=== PATIENT | male | born 1970 | race Caucasian/White ===

== ENCOUNTER 2016-11-08 14:38 | Emergency (ER) | payer MEDICAID ==
--- NOTE | 2016-11-08 14:40 | EDM.PDOC ---
ED HPI GENERAL MEDICAL PROBLEM - General Chief Complaint: Allergic Reaction Stated Complaint: [id number] BEE STING LIP Time Seen by Provider: 11/08/16 14:40 Source of Information: Reports: Patient, RN, RN Notes Reviewed History Limitations: Reports: No Limitations - History of Present Illness INITIAL COMMENTS - FREE TEXT/NARRATIVE: Arrives to ER by POV with c/o that he was just stung on the upper lip by a bee ( yellow jacket). Pt felt a brief tightening in his throat, but that feels better now. He c/o sudden onset of nasal congestion ("plugged nose") shortly after being stung as well. Denies any itching of the skin, hives, rash, cough, wheezing, or difficulty breathing. Onset: Today Duration: Constant Location: Reports: Face Quality: Reports: Burning (stinging) Severity: Moderate Improves with: Reports: None Worsens with: Reports: None Associated Symptoms: Reports: No Other Symptoms Upper Lip Pain Score (Numeric/FACES): 1 - Related Data Allergies Allergy/AdvReac Type Severity Reaction Status Date / Time Penicillins Allergy Hives Verified 11/08/16 14:42 Home Meds: Home Meds . [No Known Home Meds] 11/08/16 [History] Past Medical History - Past Health History Medical/Surgical History: Denies Medical/Surgical History Social & Family History - Family History Family Medical History: Noncontributory - Living Situation & Occupation Living situation: Reports: with Family Occupation: Employed ED ROS ALLERGIC REACTION - Review of Systems Review Of Systems: ROS reveals no pertinent complaints other than HPI. ED EXAM GENERAL NO PERIP PULSE - Physical Exam Exam: See Below Exam Limited By: No Limitations General Appearance: Alert, WD/WN, No Apparent Distress, Anxious Eye Exam: Bilateral Eye: Normal Inspection Ears: Normal External Exam, Hearing Grossly Normal Nose: No Blood, Nasal Drainage (clear, thick, with mild congestion and inflammed /swollen nasal mucosa) Throat/Mouth: Normal Oropharynx, Normal Voice, No Airway Compromise Head: Atraumatic, Normocephalic Neck: Normal Inspection, Supple, Non-Tender, Full Range of Motion Respiratory/Chest: No Respiratory Distress, Lungs Clear, Normal Breath Sounds, No Accessory Muscle Use, Chest Non-Tender Cardiovascular: Regular Rate, Rhythm Extremities: Normal Inspection Neurological: Alert, Oriented, CN II-XII Intact, Normal Cognition, Normal Gait, No Motor/Sensory Deficits Skin Exam: Warm, Dry, Intact, Normal Color Course - Vital Signs Last Recorded V/S: Last Vital Signs Temp 36.5 C 11/08/16 14:43 Pulse 58 L 11/08/16 14:43 Resp 18 11/08/16 14:43 BP 126/84 11/08/16 14:43 Pulse Ox 100 11/08/16 14:43 - Orders/Labs/Meds Meds: Medications Discontinued Medications Generic Name Dose Route Start Last Admin Trade Name Diego PRN Reason Stop Dose Admin Epinephrine HCl 0.5 mg 11/08/16 14:59 Adrenalin 1:1000 IM 11/08/16 15:00 ONETIME ONE Loratadine 10 mg 11/08/16 14:58 Claritin PO 11/08/16 14:59 ONETIME ONE Prednisone 60 mg 11/08/16 14:59 Prednisone PO 11/08/16 15:00 ONETIME ONE Departure - Departure Time of Disposition: 15:40 Disposition: Home, Self-Care 01 Condition: Good Clinical Impression: Wasp sting Qualifiers: Encounter type: initial encounter Injury intent: accidental or unintentional Qualified Code(s): T63.461A - Toxic effect of venom of wasps, accidental ( unintentional), initial encounter Local reaction to insect sting Qualifiers: Encounter type: initial encounter Injury intent: accidental or unintentional Qualified Code(s): T63.481A - Toxic effect of venom of other arthropod, accidental (unintentional), initial encounter - Discharge Information Instructions: Bee, Wasp, or Hornet Sting Forms: ED Department Discharge Additional Instructions: Rx: Prednisone 20mg Apply ice to area of sting. Use over the counter Benadryl 25mg: Take 1 or 2 tablets by mouth every 6 hours as needed until the swelling and pain or itching from the sting resolve. Follow up in clinic if not improving in 2 to 3 days. Return to ER if worse at any time.
[2016-11-08 14:45] VITALS: BP 126/84
[2016-11-08] MEDS ORDERED: Loratadine 10 MG Tab PO ONE (14:58)
[2016-11-08] MEDS ORDERED: EPINEPHrine 1 MG/ML SDV IM ONE (14:59)
[2016-11-08] MEDS ORDERED: predniSONE 20 MG Tab PO ONE (14:59)
== END 2016-11-08 15:35 | disposition home or self-care (01) ==
LOC: DL.ED 14:38
DX: T63.461A Toxic effect of venom of wasps, accidental (unintentional), initial encounter (principal); Z88.0 Allergy status to penicillin
CPT/HCPCS: 96372; 99282; A9270; J0171

== ENCOUNTER 2017-09-18 18:48 | Emergency (ER) | payer MEDICAID ==
[2017-09-18 20:09] VITALS: BP 133/70
[2017-09-18] MEDS ORDERED: Acetaminophen 325 MG Tab PO ONE (20:29)
[2017-09-18] MEDS ORDERED: Sodium Chloride 0.9% 1,000 ML IV ONE (20:29)
[2017-09-18 20:35] LABS: CHLORIDE,CL 98 mmol/L (101-111); SODIUM,NA 134 mmol/L (135-145)
[2017-09-18] MEDS ORDERED: Ketorolac 30 MG/ML SDV IVPUSH ONE (21:34)
[2017-09-18] MEDS ORDERED: Doxycycline 100 MG Cap PO ONE (21:35)
--- NOTE | 2017-09-18 22:15 | EDM.PDOC ---
ED HPI GENERAL MEDICAL PROBLEM - General Chief Complaint: General Stated Complaint: MALAYS Time Seen by Provider: 09/18/17 19:45 Source of Information: Reports: Patient History Limitations: Reports: No Limitations - History of Present Illness INITIAL COMMENTS - FREE TEXT/NARRATIVE: increasing back pain, general aches and weakness since , thought over worked moving mud but last night coughed during night and had sudden frontal headache, since pain when coughs, minimal at rest. had upper back pain at start of symptoms but now tends to be in more lower back, helt hot and chilled at same time, no nausea or vomiting. Rare cough, admits recent resumption of cigars. States is out side most of time, exposure to both ticks and mosquitos. Has pulled multiple ticks off. No noted rashes. Generalized Pain Score (Numeric/FACES): 7 - Related Data Allergies Allergy/AdvReac Type Severity Reaction Status Date / Time Penicillins Allergy Hives Verified 09/19/17 10:48 Home Meds: Home Meds . [No Known Home Meds] 11/08/16 [History] Past Medical History - Past Health History Medical/Surgical History: Denies Medical/Surgical History HEENT History: Reports: None Cardiovascular History: Reports: None Respiratory History: Reports: None Gastrointestinal History: Reports: None Genitourinary History: Reports: None Musculoskeletal History: Reports: Fracture Neurological History: Reports: None Psychiatric History: Reports: None Endocrine/Metabolic History: Reports: None Hematologic History: Reports: None Immunologic History: Reports: None Oncologic (Cancer) History: Reports: None Dermatologic History: Reports: Eczema - Infectious Disease History Infectious Disease History: Reports: Chicken Pox - Past Surgical History HEENT Surgical History: Reports: None Cardiovascular Surgical History: Reports: None Respiratory Surgical History: Reports: None GI Surgical History: Reports: None Male Surgical History: Reports: None Endocrine Surgical History: Reports: None Neurological Surgical History: Reports: None Musculoskeletal Surgical History: Reports: Shoulder Surgery Dermatological Surgical History: Reports: None Social & Family History - Family History Family Medical History: Noncontributory - Tobacco Use Smoking Status *Q: Former Smoker Used Tobacco, but Quit: Yes Month/Year Tobacco Last Used: 09/18/17 - Caffeine Use Caffeine Use: Reports: Coffee - Recreational Drug Use Recreational Drug Use: No - Living Situation & Occupation Living situation: Reports: with Family Occupation: Employed ED ROS GENERAL - Review of Systems Review Of Systems: See Below Constitutional: Reports: Fever, Malaise, Decreased Appetite. Denies: Chills, Weakness HEENT: Reports: No Symptoms Respiratory: Reports: No Symptoms Cardiovascular: Reports: No Symptoms GI/Abdominal: Reports: Decreased Appetite, Nausea. Denies: Vomiting Musculoskeletal: Reports: Other (generalized body aches) Skin: Denies: Rash, Erythema, Wound Neurological: Reports: Headache. Denies: Numbness, Trouble Speaking, Difficulty Walking, Weakness ED EXAM, GENERAL - Physical Exam Exam: See Below Exam Limited By: No Limitations General Appearance: Alert, Mild Distress Eye Exam: Bilateral Eye: EOMI, PERRL Ears: Normal External Exam, Normal TMs Nose: Normal Inspection, Normal Mucosa, No Blood Throat/Mouth: Normal Inspection, Normal Lips, Normal Teeth, Normal Gums, Normal Oropharynx, Normal Voice, No Airway Compromise Head: Atraumatic, Normocephalic Neck: Normal Inspection, Supple, Non-Tender, Full Range of Motion, Other (no nuccal rigidity) Respiratory/Chest: No Respiratory Distress, Lungs Clear Cardiovascular: Normal Peripheral Pulses, Regular Rate, Rhythm GI/Abdominal: Normal Bowel Sounds, Soft, Non-Tender Back Exam: Normal Inspection, Full Range of Motion Neurological: Alert, Oriented, Normal Cognition, Normal Gait, Normal Reflexes, No Motor/Sensory Deficits Psychiatric: Flat Affect Skin Exam: Warm, Dry, Intact, Normal Color Course - Vital Signs Last Recorded V/S: Last Vital Signs Temp 99.2 F 09/18/17 22:19 Pulse 80 09/18/17 20:06 Resp 16 09/18/17 20:06 BP 133/70 09/18/17 20:06 Pulse Ox 99 09/18/17 20:06 - Orders/Labs/Meds Labs: Laboratory Tests 09/18/17 09/18/17 09/18/17 Range/Units 18:50 20:06 20:06 WBC 5.5 (5.0-10.0) 10^3/uL RBC 5.00 (4.6-6.2) 10^6/uL Hgb 15.9 (14.0-18.0) g/dL Hct 45.9 (40.0-54.0) % MCV 91.8 (80-100) fL MCH 31.8 (27.0-34.0) pg MCHC 34.6 (33.0-35.0) g/dL Plt Count 155 (150-450) 10^3/uL Neut % (Auto) 82.5 H (42.2-75.2) % Lymph % (Auto) 10.3 L (20.5-50.1) % [place] % (Auto) 6.5 (2-8) % Eos % (Auto) 0.0 L (1.0-3.0) % Baso % (Auto) 0.7 (0.0-1.0) % Sodium 134 L (135-145) mmol/L Potassium 3.7 (3.6-5.0) mmol/L Chloride 98 L (101-111) mmol/L Carbon Dioxide 27.0 (21.0-31.0) mmol/L Anion Gap 12.7 BUN 8 (7-18) mg/dL Creatinine 0.9 (0.6-1.3) mg/dL Est Cr Clr Drug Dosing 117.14 mL/min Estimated GFR (MDRD) > 60 BUN/Creatinine Ratio 8.88 Glucose 97 (74-105) mg/dL Lactic Acid (0.5-2.2) mmol/L Calcium 8.7 (8.4-10.2) mg/dl Total Bilirubin 0.7 (0.2-1.0) mg/dL AST 29 (10-42) IU/L ALT 22 (10-60) IU/L Alkaline Phosphatase 80 (42-121) IU/L Total Protein 7.9 (6.7-8.2) g/dl Albumin 4.0 (3.2-5.5) g/dl Globulin 3.9 Albumin/Globulin Ratio 1.03 Urine Color Yellow (YELLOW) Urine Appearance Clear (CLEAR) Urine pH 5.5 (5.0-9.0) Ur Specific [place] 1.025 (1.005-1.030) Urine Protein 30 H (NEGATIVE) Urine Glucose (UA) Negative (NEGATIVE) Urine Ketones Negative (NEGATIVE) Urine Occult Blood Moderate H (NEGATIVE) Urine Nitrite Negative (NEGATIVE) Urine Bilirubin Negative (NEGATIVE) Urine Urobilinogen 0.2 (0.2-1.0) mg/dL Ur Leukocyte Esterase Negative (NEGATIVE) Urine RBC 5-10 H /HPF Urine WBC 0-5 (0-5/HPF) /HPF Ur Epithelial Cells Occasional /HPF Urine Bacteria Moderate H (0-FEW/HPF) /HPF Urine Mucus Few H /LPF 09/18/17 Range/Units 20:06 WBC (5.0-10.0) 10^3/uL RBC (4.6-6.2) 10^6/uL Hgb (14.0-18.0) g/dL Hct (40.0-54.0) % MCV (80-100) fL MCH (27.0-34.0) pg MCHC (33.0-35.0) g/dL Plt Count (150-450) 10^3/uL Neut % (Auto) (42.2-75.2) % Lymph % (Auto) (20.5-50.1) % [place] % (Auto) (2-8) % Eos % (Auto) (1.0-3.0) % Baso % (Auto) (0.0-1.0) % Sodium (135-145) mmol/L Potassium (3.6-5.0) mmol/L Chloride (101-111) mmol/L Carbon Dioxide (21.0-31.0) mmol/L Anion Gap BUN (7-18) mg/dL Creatinine (0.6-1.3) mg/dL Est Cr Clr Drug Dosing mL/min Estimated GFR (MDRD) BUN/Creatinine Ratio Glucose (74-105) mg/dL Lactic Acid 1.0 (0.5-2.2) mmol/L Calcium (8.4-10.2) mg/dl Total Bilirubin (0.2-1.0) mg/dL AST (10-42) IU/L ALT (10-60) IU/L Alkaline Phosphatase (42-121) IU/L Total Protein (6.7-8.2) g/dl Albumin (3.2-5.5) g/dl Globulin Albumin/Globulin Ratio Urine Color (YELLOW) Urine Appearance (CLEAR) Urine pH (5.0-9.0) Ur Specific [place] (1.005-1.030) Urine Protein (NEGATIVE) Urine Glucose (UA) (NEGATIVE) Urine Ketones (NEGATIVE) Urine Occult Blood (NEGATIVE) Urine Nitrite (NEGATIVE) Urine Bilirubin (NEGATIVE) Urine Urobilinogen (0.2-1.0) mg/dL Ur Leukocyte Esterase (NEGATIVE) Urine RBC /HPF Urine WBC (0-5/HPF) /HPF Ur Epithelial Cells /HPF Urine Bacteria (0-FEW/HPF) /HPF Urine Mucus /LPF Meds: Medications Discontinued Medications Generic Name Dose Route Start Last Admin Trade Name Diego PRN Reason Stop Dose Admin Acetaminophen 650 mg 09/18/17 20:29 09/18/17 20:37 Tylenol PO 09/18/17 20:30 650 mg NOW ONE Administration Doxycycline Hyclate 100 mg 09/18/17 21:35 09/18/17 21:43 Vibramycin PO 09/18/17 21:36 100 mg ONETIME ONE Administration Sodium Chloride 1,000 mls @ 999 mls/hr 09/18/17 20:29 09/18/17 20:35 Normal Saline IV 09/18/17 21:29 999 mls/hr .BOLUS ONE Administration Ketorolac Tromethamine 30 mg 09/18/17 21:34 09/18/17 21:43 Toradol IVPUSH 09/18/17 21:35 30 mg ONETIME ONE Administration - Radiology Interpretation Free Text/Narrative:: Head CT negative Departure - Departure Time of Disposition: 22:10 Disposition: Home, Self-Care 01 Condition: Good Clinical Impression: Viral syndrome, Mild dehydration, Myalgia Hematuria Qualifiers: Hematuria type: unspecified type Qualified Code(s): R31.9 - Hematuria, unspecified Tick bite of periumbilical region Qualifiers: Encounter type: initial encounter Qualified Code(s): S30.861A - Insect bite ( nonvenomous) of abdominal wall, initial encounter - Discharge Information Instructions: Tick Bite Information, Adult, [id number], West Nile Virus Referrals: PCP,None [Primary Care Provider] - Forms: ED Department Discharge Additional Instructions: increase fluids rest, light activity follow up if worsening symptoms, with weakness, development of rash, constant headache, neck pain with movement, confusion doxycycline 100mg twice daily for one week
== END 2017-09-18 22:19 | disposition home or self-care (01) ==
LOC: DL.ED 18:48
DX: S30.861A Insect bite (nonvenomous) of abdominal wall, initial encounter (principal); E86.0 Dehydration; R31.9 Hematuria, unspecified; B34.9 Viral infection, unspecified; M79.1 Myalgia; Z88.0 Allergy status to penicillin; Z87.891 Personal history of nicotine dependence; W57.XXXA Bitten or stung by nonvenomous insect and other nonvenomous arthropods, initial encounter
CPT/HCPCS: 36415; 70450; 71045; 74176; 80053; 81001; 83605; 85025; 86618; 86788; 87040; 87081; 87430; 87804; 96361; 96374; 99284; A9270; J1885; J7030; 86617

== ENCOUNTER 2018-08-16 13:09 | Emergency (ER) | payer MEDICAID, OTHER ==
[2018-08-16 13:18] VITALS: BP 137/85; PULSE 66
--- NOTE | 2018-08-16 13:44 | EDM.PDOC ---
ED HPI GENERAL MEDICAL PROBLEM - General Chief Complaint: Respiratory Problem Stated Complaint: passing out,hard to breathe Time Seen by Provider: 08/16/18 13:44 Source of Information: Reports: Patient, RN, RN Notes Reviewed History Limitations: Reports: No Limitations - History of Present Illness INITIAL COMMENTS - FREE TEXT/NARRATIVE: Pt to ER with c/o dizziness, near syncope episode, nausea, and dry heaves. Patient [place] and had diarrhea, which he states had bright red blood in it. He states he has had this several times in the past and has been told that he has internal hemorrhoids. Pt states he feels he is having a reaction of two medications he took this morning. He states he took indomethacin and modanfinil, which he rarely takes together. He states that within 1 hour of taking the medications he felt "not right". He denies recent illness, fever, chills. States he had nausea with dry heaves today , felt dizzy, and felt as if he were going to pass out while he was driving. Pt also admits to SOB "in episodes". Patient states he used to smoke, and has cut back, but still smokes occasionally. Denies any pain at this time. He states he feels sleepy. Onset: Today, Sudden Duration: Intermittent - Related Data Allergies Allergy/AdvReac Type Severity Reaction Status Date / Time Penicillins Allergy Hives Verified 08/16/18 13:13 Home Meds: Home Meds Indomethacin 50 mg PO PRN 08/16/18 [History] Past Medical History - Past Health History Medical/Surgical History: Denies Medical/Surgical History HEENT History: Reports: None Cardiovascular History: Reports: None Respiratory History: Reports: None Gastrointestinal History: Reports: None Genitourinary History: Reports: None Musculoskeletal History: Reports: Fracture Neurological History: Reports: None Psychiatric History: Reports: None Endocrine/Metabolic History: Reports: None Hematologic History: Reports: None Immunologic History: Reports: None Oncologic (Cancer) History: Reports: None Dermatologic History: Reports: Eczema - Infectious Disease History Infectious Disease History: Reports: Chicken Pox - Past Surgical History Head Surgeries/Procedures: Reports: None HEENT Surgical History: Reports: None Cardiovascular Surgical History: Reports: None Respiratory Surgical History: Reports: None GI Surgical History: Reports: None Male Surgical History: Reports: None Endocrine Surgical History: Reports: None Neurological Surgical History: Reports: None Musculoskeletal Surgical History: Reports: Shoulder Surgery Dermatological Surgical History: Reports: None Social & Family History - Family History Family Medical History: Noncontributory - Tobacco Use Smoking Status *Q: Current Every Day Smoker Years of Tobacco use: 28 Packs/Tins Daily: 1 - Caffeine Use Caffeine Use: Reports: Coffee, Energy Drinks, Soda - Alcohol Use Days Per Week of Alcohol Use: 3 Number of Drinks Per Day: 10 Total Drinks Per Week: 30 - Recreational Drug Use Recreational Drug Use: No - Living Situation & Occupation Living situation: Reports: with Family Occupation: Employed ED ROS GENERAL - Review of Systems Review Of Systems: ROS reveals no pertinent complaints other than HPI. ED EXAM, GENERAL - Physical Exam Exam: See Below Exam Limited By: No Limitations General Appearance: Alert, WD/WN, Anxious, Mild Distress Eye Exam: Bilateral Eye: EOMI, Normal Inspection Ears: Normal External Exam, Hearing Grossly Normal Nose: Normal Inspection Throat/Mouth: Normal Inspection, Normal Voice, No Airway Compromise Head: Atraumatic, Normocephalic Neck: Normal Inspection, Supple, Non-Tender, Full Range of Motion Respiratory/Chest: No Respiratory Distress, No Accessory Muscle Use, Chest Non- Tender, Decreased Breath Sounds Cardiovascular: Normal Peripheral Pulses, Regular Rate, Rhythm, No Edema, No Gallop, No JVD, No Murmur, No Rub Peripheral Pulses: 2+: Radial (L), Radial (R) GI/Abdominal: Normal Bowel Sounds, Soft, Non-Tender (Male) Exam: Deferred Rectal (Males) Exam: Deferred Back Exam: Normal Inspection, Full Range of Motion Extremities: Normal Inspection, Normal Range of Motion, Non-Tender, No Pedal Edema, Normal Capillary Refill Neurological: Alert, Oriented, CN II-XII Intact, Normal Cognition, Normal Gait, Normal Reflexes, No Motor/Sensory Deficits Psychiatric: Anxious Skin Exam: Warm, Dry, Intact, Normal Color, No Rash Lymphatic: No Adenopathy Course - Vital Signs Last Recorded V/S: Last Vital Signs Temp 97.6 F 08/16/18 13:16 Pulse 66 08/16/18 13:16 Resp 16 08/16/18 13:16 BP 137/85 08/16/18 13:16 Pulse Ox 100 08/16/18 13:16 - Orders/Labs/Meds Orders: Active Orders 24 hr Category Date Time Status EKG Documentation Completion [RC] STAT Care 08/16/18 13:59 Active Peripheral IV Care [RC] . DIRECTED Care 08/16/18 14:03 Active Peripheral IV Insertion Adult [OM.PC] Stat Oth 08/16/18 13:58 Ordered Labs: Laboratory Tests 08/16/18 08/16/18 08/16/18 Range/Units 14:16 14:16 14:16 WBC 6.0 (5.0-10.0) 10^3/uL RBC 4.71 (4.6-6.2) 10^6/uL Hgb 14.8 (14.0-18.0) g/dL Hct 42.0 (40.0-54.0) % MCV 89.2 (80-100) fL MCH 31.4 (27.0-34.0) pg MCHC 35.2 H (33.0-35.0) g/dL Plt Count 304 D (150-450) 10^3/uL Neut % (Auto) 64.4 (42.2-75.2) % Lymph % (Auto) 27.4 (20.5-50.1) % [place] % (Auto) 7.1 (2-8) % Eos % (Auto) 0.8 L (1.0-3.0) % Baso % (Auto) 0.3 (0.0-1.0) % PT 9.4 (9.0-12.0) SEC INR 0.9 (0.9-1.2) D-Dimer, Quantitative (0-400) ng/mL Sodium 135 (135-145) mmol/L Potassium 3.3 L (3.6-5.0) mmol/L Chloride 101 (101-111) mmol/L Carbon Dioxide 25.0 (21.0-31.0) mmol/L Anion Gap 12.3 BUN 21 H (7-18) mg/dL Creatinine 1.0 (0.6-1.3) mg/dL Est Cr Clr Drug Dosing 104.31 mL/min Estimated GFR (MDRD) > 60 BUN/Creatinine Ratio 21.00 Glucose 119 H (74-105) mg/dL Calcium 9.1 (8.4-10.2) mg/dl Total Bilirubin 0.6 (0.2-1.0) mg/dL AST 26 (10-42) IU/L ALT 20 (10-60) IU/L Alkaline Phosphatase 70 (42-121) IU/L Troponin I < 0.02 (0.00-0.02) ng/ml B-Natriuretic Peptide < 5 (0-100) pg/ml Total Protein 8.0 (6.7-8.2) g/dl Albumin 4.2 (3.2-5.5) g/dl Globulin 3.8 Albumin/Globulin Ratio 1.11 Urine Color (YELLOW) Urine Appearance (CLEAR) Urine pH (5.0-9.0) Ur Specific [place] (1.005-1.030) Urine Protein (NEGATIVE) Urine Glucose (UA) (NEGATIVE) Urine Ketones (NEGATIVE) Urine Occult Blood (NEGATIVE) Urine Nitrite (NEGATIVE) Urine Bilirubin (NEGATIVE) Urine Urobilinogen (0.2-1.0) mg/dL Ur Leukocyte Esterase (NEGATIVE) Urine Opiates Screen (NEGATIVE) Ur Oxycodone Screen (NEGATIVE) Urine Methadone Screen (NEGATIVE) Ur Barbiturates Screen (NEGATIVE) U Tricyclic Antidepress (NEGATIVE) Ur Phencyclidine Scrn (NEGATIVE) Ur Amphetamine Screen (NEGATIVE) U Methamphetamines Scrn (NEGATIVE) Urine MDMA Screen (NEGATIVE) U Benzodiazepines Scrn (NEGATIVE) Urine Cocaine Screen (NEGATIVE) U Marijuana (THC) Screen (NEGATIVE) Ethyl Alcohol < 5 mg/dL 08/16/18 08/16/18 08/16/18 Range/Units 14:16 14:56 14:56 WBC (5.0-10.0) 10^3/uL RBC (4.6-6.2) 10^6/uL Hgb (14.0-18.0) g/dL Hct (40.0-54.0) % MCV (80-100) fL MCH (27.0-34.0) pg MCHC (33.0-35.0) g/dL Plt Count (150-450) 10^3/uL Neut % (Auto) (42.2-75.2) % Lymph % (Auto) (20.5-50.1) % [place] % (Auto) (2-8) % Eos % (Auto) (1.0-3.0) % Baso % (Auto) (0.0-1.0) % PT (9.0-12.0) SEC INR (0.9-1.2) D-Dimer, Quantitative < 100 (0-400) ng/mL Sodium (135-145) mmol/L Potassium (3.6-5.0) mmol/L Chloride (101-111) mmol/L Carbon Dioxide (21.0-31.0) mmol/L Anion Gap BUN (7-18) mg/dL Creatinine (0.6-1.3) mg/dL Est Cr Clr Drug Dosing mL/min Estimated GFR (MDRD) BUN/Creatinine Ratio Glucose (74-105) mg/dL Calcium (8.4-10.2) mg/dl Total Bilirubin (0.2-1.0) mg/dL AST (10-42) IU/L ALT (10-60) IU/L Alkaline Phosphatase (42-121) IU/L Troponin I (0.00-0.02) ng/ml B-Natriuretic Peptide (0-100) pg/ml Total Protein (6.7-8.2) g/dl Albumin (3.2-5.5) g/dl Globulin Albumin/Globulin Ratio Urine Color Yellow (YELLOW) Urine Appearance Clear (CLEAR) Urine pH 5.5 (5.0-9.0) Ur Specific [place] <= 1.005 (1.005-1.030) Urine Protein Negative (NEGATIVE) Urine Glucose (UA) Negative (NEGATIVE) Urine Ketones Negative (NEGATIVE) Urine Occult Blood Negative (NEGATIVE) Urine Nitrite Negative (NEGATIVE) Urine Bilirubin Negative (NEGATIVE) Urine Urobilinogen 0.2 (0.2-1.0) mg/dL Ur Leukocyte Esterase Negative (NEGATIVE) Urine Opiates Screen Negative (NEGATIVE) Ur Oxycodone Screen Negative (NEGATIVE) Urine Methadone Screen Negative (NEGATIVE) Ur Barbiturates Screen Negative (NEGATIVE) U Tricyclic Antidepress Negative (NEGATIVE) Ur Phencyclidine Scrn Negative (NEGATIVE) Ur Amphetamine Screen Negative (NEGATIVE) U Methamphetamines Scrn Negative (NEGATIVE) Urine MDMA Screen Negative (NEGATIVE) U Benzodiazepines Scrn Negative (NEGATIVE) Urine Cocaine Screen Negative (NEGATIVE) U Marijuana (THC) Screen Negative (NEGATIVE) Ethyl Alcohol mg/dL Meds: Medications Discontinued Medications Generic Name Dose Route Start Last Admin Trade Name Freq PRN Reason Stop Dose Admin Sodium Chloride 1,000 mls @ 999 mls/hr 08/16/18 14:18 Normal Saline IV 05/16/19 15:18 .BOLUS ONE Sodium Chloride 10 ml 08/16/18 13:58 Saline Flush FLUSH ASDIRECTED PRN Keep Vein Open - Radiology Interpretation Free Text/Narrative:: Chest xray: No acute new cardiopulmonary abnormality See rad report - Re-Assessments/Exams Free Text/Narrative Re-Assessment/Exam: 08/16/18 17:00 Patient states he is feeling much better prior to discharge Departure - Departure Time of Disposition: 15:44 Disposition: Home, Self-Care 01 Condition: Fair Clinical Impression: Medication reaction Qualifiers: Encounter type: initial encounter Qualified Code(s): T50.905A - Adverse effect of unspecified drugs, medicaments and biological substances, initial encounter - Discharge Information *PRESCRIPTION DRUG MONITORING PROGRAM REVIEWED*: No *COPY OF PRESCRIPTION DRUG MONITORING REPORT IN PATIENT DAVIE: No Instructions: Shortness of Breath, Adult, [id number] Referrals: PCP,None [Primary Care Provider] - Forms: ED Department Discharge Additional Instructions: Drink plenty of water Follow up with your primary care facility Refrain from taking Indomethacin and Modofinel together - My Orders Last 24 Hours: My Active Orders 08/16/18 13:58 Peripheral IV Insertion Adult [OM.PC] Stat 08/16/18 13:59 EKG Documentation Completion [RC] STAT 08/16/18 14:03 Peripheral IV Care [RC] . DIRECTED - Assessment/Plan Last 24 Hours: My Active Orders 08/16/18 13:58 Peripheral IV Insertion Adult [OM.PC] Stat 08/16/18 13:59 EKG Documentation Completion [RC] STAT 08/16/18 14:03 Peripheral IV Care [RC] . DIRECTED
[2018-08-16] MEDS ORDERED: Sodium Chloride 0.9% 10 ML Syringe FLUSH PRN (13:58)
[2018-08-16] MEDS ORDERED: Sodium Chloride 0.9% 1,000 ML IV ONE (14:18)
[2018-08-16 14:55] LABS: ANION GAP 12.3; CHLORIDE,CL 101 mmol/L (101-111); SODIUM,NA 135 mmol/L (135-145)
--- NOTE | 2018-08-16 15:00 | CR ---
Clinical history: 48-year-old male chest pain. Interpretation: Upright AP portable chest film with gown snaps. Chronic mild shaggy interstitial pattern (smoker). Normal cardiac silhouette without cephalization of vascular flow, alveolar edema or dependent pleural effusion. No new lung mass, hilar lymphadenopathy or focal lobar pneumonia when compared 18 September 2017 exam. No atelectasis/collapse. No pneumothorax. CONCLUSION: No acute new cardiopulmonary abnormality since September 2017 exam.
== END 2018-08-16 16:00 | disposition home or self-care (01) ==
LOC: DL.ED 13:09
DX: R55 Syncope and collapse (principal); R42 Dizziness and giddiness; R11.0 Nausea; T39.395A Adverse effect of other nonsteroidal anti-inflammatory drugs [NSAID], initial encounter; T43.695A Adverse effect of other psychostimulants, initial encounter; Z88.0 Allergy status to penicillin; F17.210 Nicotine dependence, cigarettes, uncomplicated
CPT/HCPCS: 36415; 71045; 80053; 80305-QW; 81003; 83880; 84484; 85025; 85379; 85610; 93005; 99283; 99285-25; G0480